=== PATIENT | male | born 1960 | race Caucasian/White ===

== ENCOUNTER 2017-02-02 11:35 | Emergency (ER) | payer SELFPAY ==
[~2017-02-02] VITALS: Ht 170.2 cm; Wt 68.0 kg
[2017-02-02 11:36] VITALS: BP 164/98; PULSE 107; RESP 12; TEMP 98.1; O2SAT 98
--- NOTE | 2017-02-02 11:46 | PD ---
Physical Exam Time Seen by Provider: 11:44 Narrative Sexual male presents to emergency department complaining of headache in the right eye. 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 Denies chest pain or shortness of breath, change in vision vision. History of shunt. Patient seen in triage. VS reviewed. Patient awaiting bed placement. Data Data Last Documented VS Vital Signs Date Time Temp Pulse Resp B/P (MAP) Pulse Ox O2 Delivery O2 Flow Rate FiO2 02/02/17 11:36 98.1 107 12 164/98 (120) 98 MDM Supervised Visit with JACINTO: No Scripts No Active Prescriptions or Reported Meds Lexie Cote Feb 02, 2017 11:46
[2017-02-02 12:17] VITALS: BP 167/97; PULSE 82; RESP 16; O2SAT 98
--- NOTE | 2017-02-02 12:26 | PD ---
HPI Chief Complaint: Headache Time Seen by Provider: 12:14 Travel History International Travel<30 days: No Contact w/Intl Traveler<30days: No Traveled to known affect area: No History of Present Illness HPI 56 year old male presents to the emergency department for evaluation of a mild headache that he states is behind his right eye. Patient states he has had headaches similar to this in the past. He denies this being the worst headache of his life. He states it started gradually. Patient states that he does get these headaches often. However, he had his blood pressure taken at work and it was 180 systolic so he was told to come the emergency department by his boss for evaluation. Blood pressure the emergency department is 164/98. The patient states the pain is mild, 1/10. He states this is his typical headache pain. The patient denies any visual changes. No neck pain or back pain. No chest pain or shortness of breath. No abdominal pain. No nausea, vomiting, diarrhea. Patient does have history of shunt that was placed back in the s. He has not had any issues with it since. Patient states that he would not have come the emergency department his pulse did not tell him to come. He denies any history of hypertension. He is not currently on any prescribed medications. He denies any alcohol or illicit drug use. [facility] Past Medical History Diminished Hearing: No Seizures: Yes ?: Not Past Surgical History Other Surgery: Yes (SHUNT 1979) Social History Alcohol Use: No Tobacco Use: Yes (<1 PPD) Substance Use: No Allergies-Medications (Allergen,Severity, Reaction): Coded Allergies: No Known Allergies (Unverified , 09/08/15) Reported Meds & Prescriptions Reported Meds & Active Scripts Active No Active Prescriptions or Reported Medications Review of Systems Except as stated in HPI: all other systems reviewed are Neg Physical Exam Narrative GENERAL: Well-nourished, well-developed male patient, afebrile SKIN: Focused skin assessment warm/dry. HEAD: Normocephalic. Atraumatic. EYES: No scleral icterus. No injection or drainage. PERRLA. NECK: Supple, trachea midline. No JVD or lymphadenopathy. CARDIOVASCULAR: Regular rate and rhythm without murmurs, gallops, or rubs. RESPIRATORY: Breath sounds equal bilaterally. No accessory muscle use. Lungs sounds are clear to auscultation GASTROINTESTINAL: Abdomen soft, non-tender, nondistended. MUSCULOSKELETAL: No cyanosis, or edema. Bilateral upper and lower extremity strength 5/5. All extremities are neurovascularly intact. BACK: Nontender without obvious deformity. No CVA tenderness. NEUROLOGICAL: Awake and alert. Cranial nerves II through XII intact. Motor and sensory grossly within normal limits. Five out of 5 muscle strength in all muscle groups. Normal speech. Data Data Last Documented VS Vital Signs Date Time Temp Pulse Resp B/P (MAP) Pulse Ox O2 Delivery O2 Flow Rate FiO2 02/02/17 12:17 82 16 167/97 (120) 98 Room Air 02/02/17 11:36 98.1 MDM Medical Decision Making Medical Screen Exam Complete: Yes Emergency Medical Condition: Yes Medical Record Reviewed: Yes Differential Diagnosis Tension type headache versus migraine headache versus hypertension Narrative Course 56 year old male presents to the emergency department for evaluation of headache that patient states is mild typical for him. He did have his blood pressure taken about work and it was elevated, 180 systolic. However, blood pressure is now 164/97. I discussed that he should follow-up with his primary care physician for further evaluation of his blood pressure. He states he would like to go home and feels comfortable going home. I discussed the case with my attending physician, Dr. Doss, who agrees with plan and disposition. The patient was discharged in stable condition with instructions, including return instructions and follow up instructions. Diagnosis Primary Impression: Tension headache Additional Impression: Blood pressure elevated without history of HTN Referrals: Primary Care Physician call for appointment Patient Instructions: Acute Headache (ED), General Instructions Additional Instructions: Follow-up with your primary care physician. Return to the emergency department for any acute worsening of symptoms. Med/Other Pt SpecificInfo: No Change to Meds Scripts No Active Prescriptions or Reported Meds Disposition: 01 DISCHARGE HOME Condition: Stable Kyle Benavideztalisha WHITING Feb 02, 2017 12:26
== END 2017-02-02 12:35 | disposition home or self-care (01) ==
LOC: NEPD 11:35
DX: G44.209 Tension-type headache, unspecified, not intractable (principal); Z72.0 Tobacco use
CPT/HCPCS: 99281